=== PATIENT | male | born 1970 | race Caucasian/White ===

== ENCOUNTER 2023-11-10 15:28 | Emergency (ER) | payer OTHER ==
[2023-11-10 16:01] VITALS: BP 139/95; PULSE 83; RESP 15; TEMP 96.8; BMI 28.8
[2023-11-10] MEDS ORDERED: CYCLOBENZAPRINE HCL 10 MG TABLET (FP) ONE (17:11)
[2023-11-10] MEDS ORDERED: LIDOCAINE 4% PATCH TP ONE (17:11)
[2023-11-10] MEDS ORDERED: IBUPROFEN 400 MG TABLET (FP) PO ONE (17:12)
[2023-11-10] MEDS: IBUPROFEN 400 MG TABLET (FP) PO ONE (17:21)
[2023-11-10] MEDS: CYCLOBENZAPRINE HCL 10 MG TABLET (FP) PO ONE (17:21)
[2023-11-10] MEDS: LIDOCAINE 4% PATCH TP ONE (17:21)
[2023-11-10] MEDS ORDERED: LIDOCAINE PATCH REMOVAL MC SCH (22:00)
== END 2023-11-10 17:56 | disposition home or self-care (01) ==
LOC: JERFT 15:28
DX: M54.2 Cervicalgia (principal); M54.6 Pain in thoracic spine; V43.52XA Car driver injured in collision with other type car in traffic accident, initial encounter; Y92.410 Unspecified street and highway as the place of occurrence of the external cause
CPT/HCPCS: 71046-TC-FY; 99283-25